=== PATIENT | female | born 1985 | race Caucasian/White ===

== ENCOUNTER 2016-09-28 17:00 | Observation (INO) | payer OTHER ==
[2016-09-28] MEDS ORDERED: ACETAMINOPHEN TAB 325 MG TAB PO PRN (21:03)
[2016-09-28] MEDS ORDERED: NALOXONE 0.4 MG/ML 1 ML VIAL IV PRN (21:06)
[2016-09-28] MEDS ORDERED: HYDROcodone/APAP 5-325MG 1 EACH TAB PO PRN (21:06)
[2016-09-28] MEDS ORDERED: TEMAZEPAM 15 MG CAP PO PRN (21:06)
[2016-09-28] MEDS ORDERED: HEPARIN SODIUM,PORCINE 5,000 UNIT/ML 1 ML VIAL IV PRN (21:08)
[2016-09-28] MEDS ORDERED: SODIUM CHLORIDE 0.9% 1,000 ML IV SCH (21:15)
[2016-09-28] MEDS ORDERED: HEPARIN SODIUM,PORCINE/D5W PMX 25,000 UNIT in DEXTROSE/WATER 1 500ML.BAG IV SCH (21:15)
[2016-09-28 22:01] LABS: Basophils % (A) 0 %; CH 30.4; CHCM 32.3; Eosinophils % (A) 1 %; HCT 37.1 % (34.0-46.0); HGB 12.2 gm/dL (11.4-16.0); Luc # (Auto) 0.17; Luc % (Auto) 3; Lymphocytes # (A) 2.9 k/uL (1.0-4.8); Lymphocytes % (A) 43 %; MCH 31.1 pg (25.0-35.0); MCHC 32.9 g/dL (31.0-37.0); MCV 94.3 fL (80.0-100.0); Mean Platelet Volume 7.2; Monocytes # (A) 0.4 k/uL (0-1.0); Monocytes % (A) 6 %; Neutrophils # (A) 3.3 k/uL (1.3-7.7); Neutrophils % (A) 48 %; RBC 3.94 m/uL (3.80-5.40); RDW 12.2 % (11.5-15.5); WBC 6.9 k/uL (3.8-10.6); WBC (Perox) 7.14
[2016-09-28 22:06] LABS: INR 1.1 (<1.1); Partial Thromboplastin Time 23.5 sec (22.0-30.0); Prothrombin Time 10.8 sec (9.0-12.0)
[2016-09-28 22:08] LABS: ALT 27 U/L (9-52); AST 15 U/L (14-36); Alkaline Phosphatase 66 U/L (38-126); Anion Gap 12 mmol/L; Blood Urea Nitrogen 12 mg/dL (7-17); Calcium 9.1 mg/dL (8.4-10.2); Carbon Dioxide 24 mmol/L (22-30); Chloride 104 mmol/L (98-107); Glucose 112 mg/dL (74-99); Magnesium 2.2 mg/dL (1.6-2.3); Non-African American GFR(MDRD) >60 (>60 ml/min/1.73 sqM); Potassium 3.9 mmol/L (3.5-5.1); Sodium 140 mmol/L (137-145); Total Bilirubin 0.3 mg/dL (0.2-1.3); Total Protein 6.8 g/dL (6.3-8.2)
[2016-09-28] MEDS: METOPROLOL TARTRATE 12.5 MG TAB PO SCH (22:33)
[2016-09-28] MEDS: PANTOPRAZOLE 40 MG TABLET PO SCH (22:33)
[2016-09-28 22:47] LABS: Appearance,Urine Clear (Clear); Bilirubin,Urine Negative (Negative); Glucose,Urine (UA) Negative (Negative); Ketones,Urine Negative (Negative); Leukocyte Esterase,Urine Negative (Negative); Nitrite,Urine Negative (Negative); PH, Urine 6.5 (5.0-8.0); Protein,Urine Negative (Negative); Specific Gravity,Urine 1.019 (1.001-1.035); UA Billing (MACRO vs. MICRO) CHEM; Urobilinogen,Urine <2.0 mg/dL (<2.0)
[2016-09-28 23:00] VITALS: BMI 28.6
[2016-09-29 01:31] VITALS: RESP 18
[2016-09-29 03:37] LABS: Basophils % (A) 1 %; CH 30.4; Eosinophils # (A) 0.1 k/uL (0-0.7); Eosinophils % (A) 1 %; HCT 38.9 % (34.0-46.0); HDW 1.98; HGB 12.7 gm/dL (11.4-16.0); Luc # (Auto) 0.19; Luc % (Auto) 3; Lymphocytes # (A) 3.2 k/uL (1.0-4.8); Lymphocytes % (A) 53 %; MCHC 32.6 g/dL (31.0-37.0); MCV 95.3 fL (80.0-100.0); Mean Platelet Volume 6.9; Monocytes # (A) 0.4 k/uL (0-1.0); Monocytes % (A) 7 %; Neutrophils # (A) 2.1 k/uL (1.3-7.7); Neutrophils % (A) 35 %; RBC 4.09 m/uL (3.80-5.40); RDW 12.1 % (11.5-15.5); WBC (Perox) 6.52
[2016-09-29 03:46] LABS: INR 1.1 (<1.1); Partial Thromboplastin Time 32.9 sec (22.0-30.0); Prothrombin Time 11.3 sec (9.0-12.0)
[2016-09-29 03:53] LABS: Anion Gap 8 mmol/L; Blood Urea Nitrogen 13 mg/dL (7-17); Calcium 8.9 mg/dL (8.4-10.2); Carbon Dioxide 23 mmol/L (22-30); Chloride 108 mmol/L (98-107); Glucose 91 mg/dL (74-99); Non-African American GFR(MDRD) >60 (>60 ml/min/1.73 sqM); Potassium 4.2 mmol/L (3.5-5.1); Sodium 139 mmol/L (137-145)
[2016-09-29] MEDS ORDERED: LEVOTHYROXINE 75 MCG TAB PO SCH (06:30)
[2016-09-29] MEDS: PANTOPRAZOLE 40 MG TABLET PO SCH (06:34)
--- NOTE | 2016-09-29 08:30 | CONS ---
DATE OF CONSULTATION: CHIEF COMPLAINT: Chest pain. HISTORY OF PRESENT ILLNESS: This is a 31-year-old lady who works at [employer] who comes in complaining of chest pain. She describes it as sharp pain and subsequent chest tightness that came on yesterday. Mild to moderate intensity, came on at rest and gradually resolved on its own. At the time of my evaluation this morning, she is pain free, hemodynamically stable and in no apparent distress. Patient had 3 sets of cardiac enzymes that are all within normal limits. Hemoglobin is normal at 12.7. EKG shows sinus rhythm, normal axis, normal intervals. There is no prior history of coronary artery disease. There is no family history of premature coronary artery disease. She is not a smoker. There is no history of hypertension or diabetes. Past medical history is significant for hypothyroidism. Medications at home include Synthroid. ALLERGIC TO PENICILLIN. FAMILY HISTORY: Negative for premature coronary artery disease. SOCIAL HISTORY: Negative for smoking, EtOH abuse, or drug abuse. REVIEW OF SYSTEMS: HEENT: Unremarkable. CARDIAC: As described above. RESPIRATORY: Negative. GI: Negative. GENITOURINARY: Negative. SKIN: Negative. MUSCULOSKELETAL: Negative. ENDOCRINE: Negative. NEUROLOGICAL: Negative. DERM: Negative. CONSTITUTIONAL: Negative. The rest of the system review is not relevant. On exam, patient is comfortable at rest. Vital signs are stable. There is no jugular venous distention. Carotid upstroke is normal. There is no bruit. Chest exam reveals good air entry bilaterally. Heart exam reveals first and second heart sounds. No gallop. No murmur, no rub. ABDOMEN: Soft, nontender. Exam of the extremities did not reveal edema. Peripheral pulses are felt. INSOLE TACK PULLER HAND exam did not reveal focal neurological deficits. Labs show that 3 sets of cardiac enzymes are negative. EKG is normal. ASSESSMENT: 1. Precordial chest pain. 2. History of hypothyroidism. PLAN: Patient's chest discomfort is atypical and probably noncardiac in origin. She ruled out for myocardial infarction. I am going to schedule her for a stress test this morning and if this is negative, she can be discharged home and follow-up arranged through our office.
[2016-09-29] MEDS ORDERED: NON-FORMULARY DRUG (Levothyroxine Sodium [Synthroid] 150 MCG) PO SCH (09:00)
[2016-09-29] MEDS ORDERED: ASPIRIN 325 MG TAB PO SCH (09:00)
--- NOTE | 2016-09-29 11:54 | HP ---
DATE OF ADMISSION: 09/28/2016 CHIEF COMPLAINT: Chest pain. HISTORY OF PRESENT ILLNESS: This 31 -year-old woman with a past medical history of multiple medical problems including hypothyroidism, preeclampsia, history of repeated miscarriages, being followed by primary physician, Dr. Bladimir Hickey apparently in [place], presented to [facility] in with complaints of chest pain. The patient apparently was to work today and the patient developed chest pain which was felt in the anterior part of the chest which went across and settled on the left side of the chest and the patient went to [facility] and evaluated in the ER and subsequently directly transferred to [facility] for further evaluation and treatment. Evaluation in [facility] showed normal. EKG and TSH is 3.562 and the patient is started on nitro drip 10 per hour but after coming to [facility] the patient complained of headache, nitro drip is being stopped at this time. There is history of fever, rigors or chills. No history of headache, loss of consciousness, seizures. Past medical history: 1. Hypothyroidism. 2. History of preeclampsia. 3. History of miscarriages. Medications prior to admission include: 1. Multivitamins one p.o. daily. 2. Synthroid 150 mcg p.o. daily. ALLERGIES: PENICILLIN. FAMILY HISTORY: History of premature coronary artery disease in father age 28 who was smoking heavily and 2 other brothers do not have any significant medical issues according to her. 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 REVIEW OF SYSTEMS: ENT: No diminished vision. No diminished hearing. CARDIOVASCULAR: As mentioned earlier. RESPIRATORY SYSTEM: As mentioned earlier. GI: No nausea. : No dysuria. CENTRAL NERVOUS SYSTEM: No numbness, weakness. Allergy/immunology: No asthma or hayfever. MUSCULOSKELETAL: As mentioned earlier. HEMATOLOGY/ONCOLOGY: No history of anemia. ENDOCRINE: As mentioned earlier, hypothyroidism. CONSTITUTIONAL: As mentioned earlier. Dermatology: Negative. RHEUMATOLOGY: Negative. PSYCHIATRY: As mentioned earlier. PHYSICAL EXAMINATION: The patient is alert and oriented x3. Pulse is 80, blood pressure 120/90, respiratory rate 20, temperature is normal. HEENT: Conjunctivae normal. Oral mucosa moist. NECK: No jugular venous distention. No carotid bruit. No lymph node enlargement. CARDIOVASCULAR: S1, S2 normal. RESPIRATORY: Breath sounds diminished at the bases. No rhonchi, no crackles. ABDOMEN: Soft, nontender. No mass palpable. Legs: No edema and no swelling. Nervous system: Higher functions as mentioned earlier. No focal motor or sensory deficits. Moves all four limbs. LYMPHATICS: No lymph nodes palpable in the neck, axillae or groin. SKIN: No ulcer, rash or bleeding. Labs are pending at this time. Previous labs from [place] reviewed. ASSESSMENT: 1. Chest pain, possible unstable angina rule out acute coronary syndrome. 2. History of hypothyroidism. 3. History of preeclampsia. 4. Family history of premature coronary artery disease. RECOMMENDATIONS AND DISCUSSION: In this 31 -year-old woman who presented with multiple complex medical issues, at this time, I recommend to continue current medications, continue symptomatic treatment, rule out myocardial infarction, unstable angina protocol. Patient unable to tolerate nitro at this time. Otherwise, we will initiate beta blockers, and continue to monitor, antiplatelet agents. Guarded prognosis because of the multiple complex medical issues. A copy of dictation forwarded to primary physician. Continue to monitor. Further recommendations to follow.
[2016-09-29] MEDS ORDERED: MULTIVITAMINS, THERA 1 EACH TAB PO SCH (12:00)
[2016-09-29] MEDS: METOPROLOL TARTRATE 12.5 MG TAB PO SCH (12:04)
--- NOTE | 2016-09-29 14:07 | ECHOS ---
DATE OF SERVICE: 09/29/16. AGE: 31Y SEX: F HT: 64" WT: 166lbs. Protocol Alexandru: Others: X Stage: 4 Dur. of Exercise: 9:30 *Heart Rate Blood Pressure *Rest: 83 Rest: 106/57 * *Max. Achieved: 170 Maximum BP: 155/65 85% PMHR: 162 100% PMHR: 191 *METS: INDICATIONS: Chest pain. MEDICATIONS: Baseline rhythm is sinus mechanism, rate of 83, normal axis and intervals. Normal electrocardiogram. Baseline blood pressure 106/57 mm mercury. The patient exercised on Alexandru protocol for 9 minutes 30 seconds reaching peak rate of 170 beats per minute, which is equal to 89% maximum predicted heart rate; peak blood pressure 155/65 mm mercury. Test was terminated secondary to fatigue. There was no chest pain. Electrocardiographic monitoring revealed no evidence of diagnostic ischemic ST deviation. FINDINGS: Baseline echocardiogram revealed normal wall motion. At peak exercise there was normal wall motion augmentation with no hypokinesis or dyskinesis. CONCLUSION: 1. Good exercise tolerance exercise tolerance with normal electrocardiograph response to exercise. 2. Normal stress echocardiogram with no evidence of stress-induced ischemia.
[2016-09-29 15:13] VITALS: BP 100/53; PULSE 58; TEMP 98
--- NOTE | 2016-09-30 13:20 | DS ---
DATE OF ADMISSION: 09/28/2016 DATE OF DISCHARGE: 09/29/2016 FINAL DIAGNOSES: 1. Chest pain, possibly musculoskeletal. Myocardial infarction ruled out. Stress echo was negative. 2. Hypothyroidism. 3. Pre-eclampsia history. 4. Family history of premature coronary artery disease. DISCHARGE DISPOSITION: The patient will be discharged in stable condition with guarded prognosis. HISTORY OF PRESENT ILLNESS: This 31-year-old woman with a past medical history of multiple medical problems admitted with chest pain, referred from [facility]. Cardiology saw the patient and labs were negative. Dr. Beard performed a stress echo, which showed good exercise tolerance and normal. On exam, vitals are stable. CARDIOVASCULAR SYSTEM: S1, S2 muffled. ABDOMEN: Soft. NERVOUS SYSTEM: No focal deficits. DISCHARGE ADVICE: 1. Diet is cardia. 2. Activity limited until followup. 3. Follow up with Dr. Hickey as mentioned earlier. Medications will be: 1. Levothyroxine 150 mcg p.o. daily. 2. Multivitamins 1 p.o. daily. Follow up with Dr. Beckman as recommended. [facility]
--- NOTE | 2016-10-01 12:36 | ECHOF ---
Referral Reason:chest pain MEASUREMENTS -------- HEIGHT: 162.6 cm WEIGHT: 75.3 kg BP: IVSd: 0.8 cm (0.6 - 1.1) LVIDd: 4.4 cm (3.9 - 5.3) LVPWd: 1.0 cm (0.6 - 1.1) IVSs: 1.1 cm LVIDs: 3.2 cm LVPWs: 1.5 cm LA Diam: 3.1 cm (2.7 - 3.8) LAESV Index (A-L): 22.24 ml/m MV EXCURSION: 21.179 mm (> 18.000) MV EF SLOPE: 110 mm/s (70 - 150) EPSS: 0.5 cm MV E Herrera: 0.92 m/s MV DecT: 293 ms MV A Herrera: 0.88 m/s MV E/A Ratio: 1.04 RAP: 5.00 mmHg RVSP: 15.42 mmHg FINDINGS -------- Sinus rhythm. This was a technically adequate study. LV size, wall thickness and systolic function are normal, with an EF greater than 55%. The right ventricle is normal in size. Normal LA size by volume 22+/-6 ml/m2. The right atrial size is normal. The aortic valve is trileaflet, and appears structurally normal. No aortic stenosis or regurgitation. Normal appearing mitral valve. Mild tricuspid regurgitation present. There is no evidence of pulmonary hypertension. The right ventricular systolic pressure, as measured by Doppler, is 15.42mmHg. There is no pulmonic regurgitation present. The aortic root size is normal. There is no pericardial effusion. CONCLUSIONS -------- 1. This was a technically adequate study. 2. LV size, wall thickness and systolic function are normal, with an EF greater than 55%. 3. Normal LA size by volume 22+/-6 ml/m2. 4. The aortic valve is trileaflet, and appears structurally normal. No aortic stenosis or regurgitation. 5. Normal appearing mitral valve. 6. Mild tricuspid regurgitation present. 7. There is no evidence of pulmonary hypertension. 8. There is no pulmonic regurgitation present. 9. There is no pericardial effusion. CAR SEAT UPHOLSTERER: Flores Urbano RDCS
== END 2016-09-29 18:07 | disposition home or self-care (01) ==
LOC: UNDOADMIN 17:09 → 6SEL 17:09 → INTOOBSV 19:09 → 6SEL 19:09
PROVIDERS: ADMIT Hospitalist; ATTEND Hospitalist
DX: R07.89 Other chest pain (principal); R07.2 Precordial pain; R51 Headache; E03.9 Hypothyroidism, unspecified; Z79.899 Other long term (current) drug therapy; Z82.49 Family history of ischemic heart disease and other diseases of the circulatory system; Z88.0 Allergy status to penicillin
CPT/HCPCS: 96376; 96366 ×2; 96365; 93017; 93306; 93350; 85379; 80053; 80048; 83735; 84484 ×2; 85025 ×2; 85610 ×2; 85730 ×2; 81003; 80306; G0378 ×2; G0379; J1644 ×2